=== PATIENT | female | born 1960 | race Caucasian/White ===

== ENCOUNTER → 2020-05-26 | Outpatient (CLI) | payer OTHER ==
[~2020-05-26] MED LIST: BARIATRIC MV-I1 EACH PO; CALCITRATE200 MG PO; ELIQUIS5 MG PO; FLECAINIDE ACET50 M1 PO; LOPRESSOR50 MG PO; LOPRESSOR50 PO; MULTAQ400 MG PO; NASCOBAL1 EACH NASAL; OMEPRAZOLE 20 M20 M1 PO; RAMIPRIL5 MG PO
== END ==
LOC: LAB 08:20
PROVIDERS: ATTEND Surgery
DX: Z01.812 Encounter for preprocedural laboratory examination (principal); Z20.828 Contact with and (suspected) exposure to other viral communicable diseases

== ENCOUNTER 2020-05-29 12:43 | Day surgery (SDC) | payer OTHER ==
[~2020-05-29] VITALS: Ht 165.1 cm; Wt 125.2 kg
--- NOTE | ~2020-05-29 | O ---
[facility] [place] [address] OPERATIVE REPORT Name: CARMELLA PARRA Room #: DEP [facility]..#: [id number] Admission: 05/29/20 Attend Phys: Adam Bernal MD Discharge: 05/29/20 Date of : 60 Report #: [id number] THIS REPORT FOR: cc: Rubens Merida Gerald F. DO Franey,Adam Mahmood MD ~ CC: Rubens Louise DATE OF SERVICE: 05/29/[address] Rubens Merida, Dr. Adam Bernal. PREOPERATIVE DIAGNOSIS: Six cystic masses of the scalp measuring 1.5 x 1.2 cm, 2.5 x 1.8 cm, 1.5 x 1.5 cm, 1.1 cm x 8 mm, 1.9 x 1.3 cm, 1.4 x 1.2 cm. POSTOPERATIVE DIAGNOSIS: Six cystic masses of the scalp measuring 1.5 x 1.2 cm, 2.5 x 1.8 cm, 1.5 x 1.5 cm, 1.1 cm x 8 mm, 1.9 x 1.3 cm, 1.4 x 1.2 cm. PROCEDURE: Excision of 6 cystic masses of the scalp measuring 1.5 x 1.2 cm, 2.5 x 1.8 cm, 1.5 x 1.5 cm, 1.1 cm x 8 mm, 1.9 cm x 1.3 cm and 1.4 x 1.2 cm, all excised through separate incisions and closed in a single layer of interrupted nylon sutures. SURGEON: Adam Bernal MD ANESTHESIA: Local. DESCRIPTION OF PROCEDURE: The patient was brought to the operating room and placed on the operative table in the supine position. Each of these areas was prepped and draped separately and then infiltrated with 1% Xylocaine with epinephrine. Elliptical skin incision was performed over each one of these 6 cystic masses and they were all excised separately using Metzenbaum scissors as well as the electrocautery for hemostasis. The incisions were closed using simple and vertical mattress interrupted 4-0 nylon sutures. The wounds were then dressed with antibiotic ointment. The patient was then taken to the outpatient recovery area awake, alert and in good condition. Estimated blood loss was approximately 10-20 mL and the patient tolerated procedure well. All sponge, lap and instrument counts correct x 2. By: [id number] Adam Bernal MD /nt
[2020-05-29 13:22] VITALS: BP 136/91
[2020-05-29] MEDS ORDERED: NORCO 5-325 TA1 EAC2 PO (15:10)
[2020-05-29 15:15] VITALS: BP 136/91
--- NOTE | 2020-06-02 17:06 | PATH ---
[facility] [address] [place] [address] PATHOLOGY RPT PROCEDURE Name: KELSI PARRA Room #: DEP [facility].R.#: [id number] Admission: 05/29/20 Date of : 60 Discharge: 05/29/20 Report #: [id number] Path Case #: [id number] [facility] Accession Number: [id number] . 01 Material submitted: . scalp - SCALP LESION X6 . 02 Diagnosis: Skin, scalp lesions x6, excision: - Multiple pilomatrixomas associated with calcification. - Negative for malignancy. 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 02 Electronically signed: . Ale Donis MD, Pathologist NPI- [id number] . 01 Gross description: . The specimen is received in formalin, labeled "Kelsi Parra, scalp lesions x6". Received are six segments of indurated white-carballo to alvarez-carballo capsular tissue, with attached skin, ranging in size from 0.9 x 0.7 x 0.8 to 2.5 x 1.8 x 1.6 cm in greatest dimensions. Sectioning through each segment reveals a unilocular cystic structure ranging in size from 0.5 to 1.7 cm filled with white, chalky to alvarez, waxy material. A sales representative cash registers section from each segment is submitted in cassettes A1 through A3. (CAA; 06/01/2020) QAC/QAC 06/01/2020 1100 Local . 02 Pathologist provided ICD-10: D23.4 . 02 CPT . 264524 Specimen Comment: A courtesy copy of this report has been sent to [phone] Specimen Comment: Report sent to Performed at: [address], [place] [id number] MD James Siddiqui MD Phone: [phone] Performed at: [address] [id number] MD Ale Donis MD Phone: [phone]
== END 2020-05-29 15:30 | disposition home or self-care (01) ==
LOC: OR 12:43 → TBA 12:48 → OR 13:01
PROVIDERS: ATTEND Surgery
DX: D23.4 Other benign neoplasm of skin of scalp and neck (principal); I10 Essential (primary) hypertension; I48.91 Unspecified atrial fibrillation; E66.01 Morbid (severe) obesity due to excess calories; G47.33 Obstructive sleep apnea (adult) (pediatric); Z98.890 Other specified postprocedural states; Z79.899 Other long term (current) drug therapy; Z79.01 Long term (current) use of anticoagulants; Z98.84 Bariatric surgery status; Z68.44 Body mass index [BMI] 60.0-69.9, adult; Z88.2 Allergy status to sulfonamides
CPT/HCPCS: 50010; 50101; 50386; 50403; 56526